=== PATIENT | male | born 1960 | race Caucasian/White ===

== ENCOUNTER 2023-05-20 21:09 | Emergency (ER) | payer BC, SELFPAY ==
[2023-05-20 21:16] VITALS: BP 197/91; PULSE 89; RESP 18; TEMP 36.6; O2SAT 99; BMI 33.9
--- NOTE | 2023-05-20 22:01 | ED_ITS ---
HPI - General Adult General Chief complaint: Eye Problems Stated complaint: Flashing lights on right eye Time Seen by Provider: 05/20/23 21:25 Source: patient Mode of arrival: ambulatory Limitations: no limitations History of Present Illness HPI narrative: 62-year-old male presenting today with concerns about his right eye. He states that approximately 5 hours ago he started having black squiggly lines on his pe ripheral vision on the 1 side. He then developed black dots in the center of the vision followed by a very small foggy spot in the center of the vision as well he states that every now and then he also sees bright flashes of light on the periphery. He generally only sees a sweats dark. He denies eye pain. He denies headache. He denies any recent trauma to the head. He states he has had Lasix in the past and no other eye problems. He does not wear glasses, wears cheaters if he has to read something that is very small. Patient has history of hypertension, BPH and GERD. He takes lisinopril, omeprazole, and Flomax. Related Data Home Medications Medication Instructions Recorded Confirmed alprazolam 0.25 mg tablet 0.25 mg PO TID PRN 06/01/22 citalopram 20 mg tablet 20 mg PO DAILY 06/01/22 hydroxyzine pamoate 25 mg capsule 25 - 50 mg PO Q4-6H PRN 06/01/22 lisinopril 20 mg tablet 20 mg PO DAILY 06/01/22 omeprazole 20 mg capsule,delayed 20 mg PO DAILY 06/01/22 release oxycodone-acetaminophen 5 mg-325 1 - 2 tab PO Q4-6H PRN 06/01/22 mg tablet tamsulosin 0.4 mg capsule 0.4 mg PO DAILY 06/01/22 zolpidem 5 mg tablet 5 mg PO .Bedtime 06/01/22 Allergies Allergy/AdvReac Type Severity Reaction Status Date / Time duloxetine Allergy Unknown Unknown Verified 05/20/23 21:18 Sulfa (Sulfonamide Allergy Unknown Unknown Verified 05/20/23 21:18 Antibiotics) Review of Systems Status of ROS: Reports: 10 or more systems reviewed and unremarkable except as noted in History and below [facility] Medical History Encounter for screening for malignant neoplasm of colon ?Z12.11 - Encounter for screening for malignant neoplasm of colon (ICD-10) Surgical History History of repair of rotator cuff ?Z98.890 - Other specified postprocedural states (ICD-10) History of nasal septoplasty ?Z98.890 - Other specified postprocedural states (ICD-10) Family History Mother Breast cancer Other Heart disease Social History Narrative: Has 3 children Nonsmoker Rarely consumes alcohol- three servings per month or less Exam Narrative: Exam Narrative: Well-nourished well-developed patient in no acute distress. Alert and oriented. Answers questions appropriately. Mood and affect are appropriate. Thoughts are goal oriented and rational. No tangential or magical thinking noted. Patient speaks in full sentences without needing to catch his breath. HEENT: Normocephalic atraumatic. Pupils are equally round reactive to light. Extraocular muscles are intact. Conjunctivae are moist without any icterus noted. Moist mucous membranes. He has no nystagmus either horizontally or vert ically. Cardiovascular: Heart is regular rate and rhythm. Skin: Well perfused without any obvious rashes. Const: Vital Signs, click to edit/add: Vital Signs - 24 hr 05/20/23 21:16 Temperature 97.9 F Pulse Rate [Right Pulse Oximeter] 89 Respiratory Rate 18 Blood Pressure [Ri ght Upper Arm] 197/91 H Pulse Oximetry 99 Oxygen Delivery Me thod Room Air Course Course ED Course: I did consult with Dr. Jayy Thomas at [facility], who recommended patient be seen 1st thing in the morning. Differential diagnosis including a vitreal hemorrhage, retinal detachment. Vital Signs Vital signs: Initial Vital Signs Temperature 97.9 F 05/20/23 21:16 Temperature Source Temporal Artery Scan 05/20/23 21:16 Pulse Rate 89 05/20/23 21:16 Pulse Rhythm Regular 05/20/23 21:16 Pulse Strength 3+ Normal 05/20/23 21:16 Respiratory Rate 18 05/20/23 21:16 Blood Pressure 197/91 H 05/20/23 21:16 Blood Pressure Mean 126 H 05/20/23 21:16 Blood Pressure Position Sitting 05/20/23 21:16 Pulse Oximetry 99 05/20/23 21:16 Oxygen Delivery Method Room Air 05/20/23 21:16 Vital Signs Temperature 97.9 F 05/20/23 21:16 Pulse Rate 89 05/20/23 21:16 Respiratory Rate 18 05/20/23 21:16 Blood Pressure 197/91 H 05/20/23 21:16 Pulse Oximetry 99 05/20/23 21:16 Oxygen Delivery Method Room Air 05/20/23 21:16 Temperature 97.9 F 05/20/23 21:16 Pulse Rate 89 05/20/23 21:16 Respiratory Rate 18 05/20/23 21:16 Blood Pressure 197/91 H 05/20/23 21:16 Pulse Oximetry 99 05/20/23 21:16 Oxygen Delivery Method Room Air 05/20/23 21:16 Medical Decision Making MDM Narrative Medical decision making narrative: 62-year-old male with vision changes. Plan per above. Patient will be seen tomorrow at [facility] at 8:00 a.m.. Discharge Plan Discharge Clinical Impression: Changes in vision Patient Disposition: Home, Self-Care Condition: Stable Additional Instructions: You are scheduled to be seen by Dr. Jayy Thomas at the [facility] at 8:00 a.m. tomorrow. The address will be provided to you today. Return to the ER if your symptoms become significantly worse before then. Prescriptions: No Action hydroxyzine pamoate 25 mg capsule 25 - 50 mg PO Q4-6H PRN zolpidem 5 mg tablet 5 mg PO .Bedtime omeprazole 20 mg capsule,delayed release(DR/EC) 20 mg PO DAILY citalopram 20 mg tablet 20 mg PO DAILY alprazolam 0.25 mg tablet 0.25 mg PO TID PRN oxycodone-acetaminophen 5-325 mg tablet 1 - 2 tab PO Q4-6H PRN lisinopril 20 mg tablet 20 mg PO DAILY tamsulosin 0.4 mg capsule 0.4 mg PO DAILY Rx Instructions: 1-2 capsules by mouth daily (start with one capsule, may take second capsule if needed). Follow Up/Referrals: Charlie Kong MD [Primary Care Provider] - Stand Alone Forms: [facility] Info Instructions
[2023-05-20 22:30] VITALS: BP 175/78; PULSE 80; RESP 18; TEMP 36.8; O2SAT 99
== END 2023-05-20 22:15 | disposition home or self-care (01) ==
PROVIDERS: Emergency Provider Family Medicine; PCP Family Medicine
DX: H54.7 Unspecified visual loss (principal)
CPT/HCPCS: 99282; 99284